=== PATIENT | male | born 1955 | race Caucasian/White ===

== ENCOUNTER → 2023-06-19 | Outpatient (CLI) | payer OTHER ==
[2023-06-20 03:07] LABS: RUBEOLA (MEASLES) IGG >300.0 AU/mL (Immune >16.4); VARICELLA ZOSTER IGG AB TITER 1953 index (Immune >165)
[2023-06-20 04:07] LABS: MUMPS VIRUS IGG ANTIBODY <9.0 AU/mL (Immune >10.9); RUBELLA AB IGG-REFLAB >33.00 index (Immune >0.99)
== END | disposition home or self-care (01) ==
LOC: LABMN 12:00
PROVIDERS: ATTEND Internal Medicine
DX: Z02.1 Encounter for pre-employment examination (principal)
CPT/HCPCS: 86706; 86735; 86762; 86765; 86787

== ENCOUNTER 2023-07-24 16:20 | Emergency (ER) | payer OTHER ==
[~2023-07-24] VITALS: Ht 180.3 cm; Wt 81.8 kg
[2023-07-24 16:21] VITALS: TEMP 97.9
[2023-07-24] MEDS ORDERED: PERTUSS(ACELL),DIPH,TET VAC/PF 0.5 ML SYRINGE IM. ONE (19:00)
[2023-07-24] MEDS ORDERED: BACITRACIN 0.9 GM PACKET OINTMENT TP ONE (19:00)
[2023-07-24 19:10] VITALS: BP 128/76; PULSE 80; RESP 18
[2023-07-24] MEDS ORDERED: AMOX1TAB16 PO (20:33)
[2023-07-26 09:07] LABS: HEPATITIS C AB (EIA) Non Reactive (Non Reactive); HIV 1-2 SCREEN 4TH GEN W/RFLX Non Reactive (Non Reactive)
== END 2023-07-24 20:50 | disposition home or self-care (01) ==
LOC: EMS 16:21
DX: S51.852A Open bite of left forearm, initial encounter (principal); E11.9 Type 2 diabetes mellitus without complications; I10 Essential (primary) hypertension; Y04.1XXA Assault by human bite, initial encounter; Y93.89 Activity, other specified; Y92.89 Other specified places as the place of occurrence of the external cause; Y99.8 Other external cause status
CPT/HCPCS: 82962; 86706; 86803; 87340; 87389; 90471; 90715; 99283

== ENCOUNTER 2023-11-29 19:22 | Emergency (ER) | payer MEDICARE, OTHER ==
[~2023-11-29] VITALS: Ht 180.3 cm; Wt 93.2 kg
[~2023-11-29 19:22] MED LIST: AMOX1TAB16 PO
[2023-11-29] MEDS ORDERED: METO-408 PO (19:43)
[2023-11-29] MEDS ORDERED: HYDR25TA PO (19:43)
[2023-11-29] MEDS ORDERED: PIOG45TA64 PO (19:43)
[2023-11-29] MEDS ORDERED: EMPA25TA3 PO (19:43)
[2023-11-29] MEDS ORDERED: EMPA10TA3 PO (19:43)
[2023-11-29] MEDS ORDERED: BENZ100C68 PO (19:43)
[2023-11-29] MEDS ORDERED: DULA4.5P SQ (19:43)
[2023-11-29] MEDS ORDERED: SIMV-43 PO (19:43)
[2023-11-29] MEDS ORDERED: LISI40TA9 PO (19:43)
[2023-11-29] MEDS ORDERED: METF-446 PO (19:43)
[2023-11-29 19:47] VITALS: BP 134/77; PULSE 81; RESP 15; TEMP 98.5
== END 2023-11-29 20:17 | disposition home or self-care (01) ==
LOC: EMS 19:23
DX: S70.12XA Contusion of left thigh, initial encounter (principal); E11.9 Type 2 diabetes mellitus without complications; I10 Essential (primary) hypertension; W19.XXXA Unspecified fall, initial encounter; Y93.89 Activity, other specified; Y92.89 Other specified places as the place of occurrence of the external cause; Y99.8 Other external cause status
CPT/HCPCS: 99282; Z7502

== ENCOUNTER 2023-12-25 15:08 | Emergency (ER) | payer MEDICARE, OTHER ==
[~2023-12-25] VITALS: Ht 180.3 cm; Wt 93.2 kg
[~2023-12-25 15:08] MED LIST changes: +BENZ100C68 PO; +DULA4.5P SQ; +EMPA10TA3 PO; +EMPA25TA3 PO; +HYDR25TA PO; +LISI40TA9 PO; +METF-446 PO; +METO-408 PO; +PIOG45TA64 PO; +SIMV-43 PO
[2023-12-25] MEDS: IBUPROFEN 600 MG TABLET PO ONE (18:41)
[2023-12-25] MEDS: LIDOCAINE 5% TRANSDERMAL PATCH TD ONE (18:42)
[2023-12-25 20:35] VITALS: BP 122/61; PULSE 81; RESP 16; TEMP 98
== END 2023-12-25 20:32 | disposition left against medical advice (07) ==
LOC: EMS 15:08
DX: M54.50 Low back pain, unspecified (principal); E11.9 Type 2 diabetes mellitus without complications; I10 Essential (primary) hypertension
CPT/HCPCS: 72128; 72131; 82962; 99284

== ENCOUNTER 2023-12-30 14:37 | Emergency (ER) | payer OTHER ==
[~2023-12-30] VITALS: Ht 180.3 cm; Wt 93.2 kg
[~2023-12-30 14:37] MED LIST changes: -AMOX1TAB16 PO; -EMPA10TA3 PO
[2023-12-30 14:47] VITALS: TEMP 97.9
[2023-12-30 15:05] LABS: GLUCOMETER DEV NAME(LOC) ERT.5; GLUCOSE,POINT OF CARE 111 MG/DL (70-110)
[2023-12-30] MEDS: BACLOFEN 10 MG TABLET PO ONE (18:45)
[2023-12-30] MEDS: IBUPROFEN 600 MG TABLET PO ONE (18:45)
[2023-12-30 18:54] VITALS: BP 143/78; PULSE 70; RESP 18
[2023-12-30] MEDS ORDERED: IBUP-1554 PO (20:27)
[2023-12-30] MEDS ORDERED: BACL10TA PO (20:27)
== END 2023-12-30 20:40 | disposition home or self-care (01) ==
LOC: EMS 15:02
DX: S00.03XA Contusion of scalp, initial encounter (principal); S16.1XXA Strain of muscle, fascia and tendon at neck level, initial encounter; M47.899 Other spondylosis, site unspecified; E11.9 Type 2 diabetes mellitus without complications; I10 Essential (primary) hypertension; W19.XXXA Unspecified fall, initial encounter; Y93.89 Activity, other specified; Y92.89 Other specified places as the place of occurrence of the external cause; Y99.8 Other external cause status
CPT/HCPCS: 70450; 72070; 72125; 82962; 99284

== ENCOUNTER 2024-01-22 13:46 | Emergency (ER) | payer OTHER ==
[~2024-01-22] VITALS: Ht 180.3 cm; Wt 93.2 kg
[~2024-01-22 13:46] MED LIST changes: +BACL10TA PO; -BENZ100C68 PO; +IBUP-1554 PO
[2024-01-22] MEDS: IBUPROFEN 600 MG TABLET PO ONE (15:12)
[2024-01-22 18:09] VITALS: BP 132/78; PULSE 78; RESP 16; TEMP 98.3
== END 2024-01-22 18:19 | disposition home or self-care (01) ==
LOC: EMS 13:46
DX: S00.83XA Contusion of other part of head, initial encounter (principal); R04.0 Epistaxis; E11.9 Type 2 diabetes mellitus without complications; I10 Essential (primary) hypertension; Y08.89XA Assault by other specified means, initial encounter; Y93.89 Activity, other specified; Y92.89 Other specified places as the place of occurrence of the external cause; Y99.8 Other external cause status
CPT/HCPCS: 70450; 70486; 72125; 82962; 99284